=== PATIENT | male | born 1935 | race Hispanic/Latino ===

== ENCOUNTER 2023-06-21 14:05 | Outpatient (CLI) | payer OTHER | END 2023-06-21 14:06 | disposition home or self-care (01) | LOC: BICCT 14:05 | PROVIDERS: ATTEND Internal Medicine Cardiovascular Disease | DX: G96.00 Cerebrospinal fluid leak, unspecified (principal) | CPT/HCPCS: 70470 ==

== ENCOUNTER 2023-07-16 11:00 | Outpatient (CLI) | payer OTHER | END 2023-07-16 11:01 | disposition home or self-care (01) | LOC: PET 11:00 | PROVIDERS: ATTEND Internal Medicine Hematology & Oncology | DX: C90.00 Multiple myeloma not having achieved remission (principal) | CPT/HCPCS: 78816; A9552 ==